=== PATIENT | male | born 1985 | race Caucasian/White ===

== ENCOUNTER 2018-09-01 21:52 | Emergency (ER) | payer MEDICAID ==
[~2018-09-01] VITALS: Ht 193 cm; Wt 63.6 kg
[2018-09-01 23:26] VITALS: BP 136/65
== END 2018-09-02 00:16 | disposition left against medical advice (07) ==
LOC: EMS 21:52
DX: T18.198A Other foreign object in esophagus causing other injury, initial encounter (principal); X58.XXXA Exposure to other specified factors, initial encounter; Y93.89 Activity, other specified; Y92.89 Other specified places as the place of occurrence of the external cause; Y99.8 Other external cause status